=== PATIENT | female | born 1945 | race African-American/Black ===

== ENCOUNTER 2018-04-08 17:46 | Emergency (ER) | payer MEDICARE, OTHER ==
[~2018-04-08] VITALS: Ht 160 cm; Wt 82.0 kg
[2018-04-08 17:56] VITALS: BP 127/67
[2018-04-08] MEDS ORDERED: ACETAMINOPHEN WITH CODEINE 300/30MG TABLET PO ONE (19:00)
== END 2018-04-08 21:01 | disposition home or self-care (01) ==
LOC: ER 18:27
DX: S50.01XA Contusion of right elbow, initial encounter (principal); S70.01XA Contusion of right hip, initial encounter; S80.01XA Contusion of right knee, initial encounter; Z79.82 Long term (current) use of aspirin; W01.0XXA Fall on same level from slipping, tripping and stumbling without subsequent striking against object, initial encounter; Y93.89 Activity, other specified; Y92.89 Other specified places as the place of occurrence of the external cause; Y99.8 Other external cause status
CPT/HCPCS: 73080; 73502; 73562; 99283